=== PATIENT | male | born 1985 | race Caucasian/White ===

== ENCOUNTER 2020-01-12 15:46 | Emergency (ER) | payer OTHER ==
[~2020-01-12] VITALS: Ht 193 cm; Wt 99.8 kg
[~2020-01-12 15:46] MED LIST: CRUTCH3 USE; NAPR500 PO; Norco 5-325 Ta1 EACH PO; PENVK500 PO; PROM25 PO
[2020-01-12] MEDS ORDERED: TRAM50 PO ×2 (18:14→18:17)
[2020-01-12] MEDS ORDERED: Robaxin-750750 MG PO (18:17)
== END 2020-01-12 18:30 | disposition home or self-care (01) ==
LOC: ER 15:46
DX: M54.5 Low back pain (principal); Z88.8 Allergy status to other drugs, medicaments and biological substances; Z87.891 Personal history of nicotine dependence
CPT/HCPCS: 72100; 99283-25

== ENCOUNTER 2020-12-10 12:43 | Emergency (ER) | payer OTHER ==
[~2020-12-10] VITALS: Ht 193 cm; Wt 114.3 kg
[~2020-12-10 12:43] MED LIST changes: +Robaxin-750750 MG PO; +TRAM50 PO
[2020-12-10] MEDS ORDERED: AMOX-CLAV 875-1 EAC5 PO (13:01)
[2020-12-10] MEDS ORDERED: IBUP800 PO (13:01)
[2020-12-10] MEDS ORDERED: OXAYDO5 M1 PO (15:18)
== END 2020-12-10 15:25 | disposition home or self-care (01) ==
LOC: ER 12:43
DX: K08.89 Other specified disorders of teeth and supporting structures (principal); Z88.8 Allergy status to other drugs, medicaments and biological substances; Z87.891 Personal history of nicotine dependence
CPT/HCPCS: 99282; A9270

== ENCOUNTER 2020-12-27 17:11 | Emergency (ER) | payer OTHER ==
[~2020-12-27] VITALS: Ht 193 cm; Wt 113.4 kg
[~2020-12-27 17:11] MED LIST changes: +AMOX-CLAV 875-1 EAC5 PO; +IBUP800 PO; +OXAYDO5 M1 PO
== END 2020-12-27 19:04 | disposition left against medical advice (07) ==
LOC: ER 17:11
DX: K08.89 Other specified disorders of teeth and supporting structures (principal); Z53.21 Procedure and treatment not carried out due to patient leaving prior to being seen by health care provider
CPT/HCPCS: 99282

== ENCOUNTER 2022-09-16 17:29 | Emergency (ER) | payer OTHER ==
[~2022-09-16] VITALS: Ht 193 cm; Wt 113.4 kg
[2022-09-16 18:26] LABS: Influenza A, PCR NEGATIVE (NEGATIVE); Influenza B, PCR NEGATIVE (NEGATIVE); Resp Syncytial Virus, PCR NEGATIVE (NEGATIVE); SARS-Cov-2 (COVID-19) PCR, MMC NEGATIVE (NEGATIVE)
[2022-09-16 18:30] LABS: Albumin, Blood 4.4 g/dL (3.4-5.0); Albumin/Globulin Ratio 1.2 (0.8-1.8); Bilirubin, Total 1.8 mg/dL (0.1-1.0); Bun/Creatinine Ratio 14.4 (12.0-20.0); Calcium, Blood 9.1 mg/dL (8.5-10.1); Creatinine, Blood 0.97 mg/dL (0.60-1.20); Globulin, Blood 3.8 g/dL (2.2-4.0); Potassium, Blood 3.8 mmol/L (3.5-5.5); Total Protein, Blood 8.2 g/dL (6.4-8.2)
[2022-09-16 19:15] LABS: BASOPHILS ABSOLUTE AUTO 0.08 K/mm3 (0.00-0.23); BASOPHILS PERCENT AUTO 1 % (0-2); EOSINOPHILS ABSOLUTE AUTO 0.11 K/mm3 (0.00-0.68); EOSINOPHILS PERCENT AUTO 1 % (0-6); Hematocrit 48.1 % (37.0-53.0); Hemoglobin 16.8 g/dL (13.5-17.5); IMMATURE GRAN ABSOLUTE AUTO 0.01 K/mm3 (0.00-0.10); IMMATURE GRAN PERCENT AUTO 0 % (0-1); LYMPHOCYTES ABSOLUTE AUTO 2.37 K/mm3 (0.84-5.20); LYMPHOCYTES PERCENT AUTO 27 % (21-46); MONOCYTES ABSOLUTE AUTO 0.72 K/mm3 (0.16-1.47); MONOCYTES PERCENT AUTO 8 % (4-13); Mean Corpuscular HGB 30.5 pg (26.0-34.0); Mean Corpuscular HGB Conc 34.9 g/dL (31.5-36.5); Mean Corpuscular Volume 88 fL (80-100); Mean Platelet Volume 10.8 fL (9.1-12.4); NEUTROPHILS PERCENT AUTO 62 % (41-73); Platelet Count 216 K/mm3 (150-400); RDW Coefficient Variation 12.4 % (11.7-14.2); RDW Standard Deviation 39.8 fL (35.1-46.3); White Blood Cell Count 8.69 K/mm3 (4.00-11.30)
== END 2022-09-16 21:12 | disposition home or self-care (01) ==
LOC: ER 17:29
PROVIDERS: Physician Assistant
DX: R07.89 Other chest pain (principal); Z91.040 Latex allergy status; Z88.8 Allergy status to other drugs, medicaments and biological substances; Z87.891 Personal history of nicotine dependence; Z20.822 Contact with and (suspected) exposure to COVID-19
CPT/HCPCS: 0241U; 36415; 71046; 80053; 84484; 85025; 93005; 93010

== ENCOUNTER 2023-06-15 16:08 | Emergency (ER) | payer OTHER ==
[~2023-06-15] VITALS: Ht 193 cm; Wt 115.7 kg
[2023-06-15 16:31] VITALS: BP 145/97
[2023-06-15] MEDS ORDERED: HYDHCL25 PO (19:12)
== END 2023-06-15 20:45 | disposition home or self-care (01) ==
LOC: ER 16:08
DX: M25.561 Pain in right knee (principal); Z88.6 Allergy status to analgesic agent; Z91.040 Latex allergy status; Z79.899 Other long term (current) drug therapy; F43.10 Post-traumatic stress disorder, unspecified; F17.200 Nicotine dependence, unspecified, uncomplicated
CPT/HCPCS: 73562-RT; 99283-25; A9270; J1885